=== PATIENT | male | born 1940 | race African-American/Black ===

== ENCOUNTER 2022-03-01 21:10 | Emergency (ER) | payer MEDICARE, MEDICAID ==
[~2022-03-01] VITALS: Ht 185.4 cm; Wt 96.0 kg
[2022-03-02] MEDS ORDERED: DOXY-244 MT (00:07)
[2022-03-02] MEDS ORDERED: AMOX1TAB16 MT (00:07)
[2022-03-02 00:24] VITALS: BP 121/75
[2022-03-02] MEDS ORDERED: AMOXICILLIN/POTASSIUM CLAVULANATE 875/125MG TAB PO ONE (00:30)
[2022-03-02] MEDS ORDERED: DOXYCYCLINE HYCLATE 100MG CAPSULE PO ONE (00:30)
== END 2022-03-02 00:24 | disposition home or self-care (01) ==
LOC: ER 21:10
DX: J18.9 Pneumonia, unspecified organism (principal); J44.9 Chronic obstructive pulmonary disease, unspecified; I10 Essential (primary) hypertension; Z86.16 Personal history of COVID-19
CPT/HCPCS: 71045; 99282

== ENCOUNTER → 2023-10-28 | Outpatient (CLI) | payer MEDICARE, MEDICAID ==
[~2023-10-28] MED LIST: AMOX1TAB16 MT; DOXY-244 MT
== END | disposition home or self-care (01) ==
LOC: RAD 09:57
PROVIDERS: ATTEND Internal Medicine Nephrology
DX: J18.9 Pneumonia, unspecified organism (principal)
CPT/HCPCS: 71045

== ENCOUNTER → 2023-11-24 | Outpatient (CLI) | payer MEDICARE, MEDICAID | END | disposition home or self-care (01) | LOC: CARD 08:17 | PROVIDERS: ATTEND Internal Medicine | DX: I08.1 Rheumatic disorders of both mitral and tricuspid valves (principal); I48.91 Unspecified atrial fibrillation; R00.2 Palpitations | CPT/HCPCS: 93306 ==